=== PATIENT | male | born 1990 ===

== ENCOUNTER 2023-03-30 17:19 | Inpatient (IN) ==
--- NOTE | 2023-03-30 18:33 | History & Physical Report ---
Date of Service March 30, 2023 Assessment & Plan (1) Peritonsillar abscess: Plan: Unasyn 3g IV q6h Dexamethasone 10mg IV NPO, IV fluids Consult oromaxillofacial surgery (2) Elevated blood pressure reading: Plan: No known hypertension. Expect to improve with pain control. Will need to follow up with PCP on discharge. Plan VTE Prophylaxis - low risk Diet - NPO Disposition - admit to med/surg Admission and Anticipated Discharge Date Admission Date: March 30, 2023 History of Present Illness Chief Complaint: Sore throat Primary Care Provider: NO PCP Emigdoi Suarez is a 32 year old male transferred from [facility] due to peritonsillar abscess seen on CT. He reports sore throat and fever started two days ago. No longer able to eat or drink any thing. No difficulty with breathing. Case was discussed with Dr Bell and recommended transfer to [facility]. In [facility] ER he was given Clindamycin, Unasyn and Dexamethasone. Allergies Allergy/AdvReac Type Severity Reaction Status Date / Time shellfish derived Allergy Severe Swelling Unverified 03/30/23 19:31 of Lip/Tongue/Throat Fish Containing Products Allergy Swelling Verified 03/30/23 19:31 of Lip/Tongue/Throat Home Medications Medication Instructions Recorded Confirmed Type No Known Home Medications 03/30/23 03/30/23 History Past Med/Surg History Medical History (Updated 03/31/23 @ 06:49 by Rachid Eubanks MD) Morbid obesity No pertinent past medical history Surgical History (Updated 03/30/23 @ 19:28 by Rachid Eubanks MD) No pertinent past surgical history Social History Smoking Status: Never smoker Hx Alcohol Use: No Hx Substance Use: No Preferred Language: Serbian Communication Ability: Effective 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 Required: No Beliefs That Will Affect Care: None Current Living Situation: Family Current Living Situation Comment: Lives with brother Other Information That Helps Us Care for You: No Feels Safe at Home: Yes Safety Concerns: Feels Safe At This Time Assistive Devices: None Review of Systems Review of Systems: All systems reviewed & are unremarkable except as noted in HPI & below Physical Exam Constitutional: WD/WN, vitals as above ENMT: Unable to visualize oropharynx without tongue depressor, no oral thrush Respiratory: normal respiratory effort, lungs clear to auscultation no stridor Cardiovascular: Rate/Rhythm: regular rhythm and + tachycardic Heart Sounds: no murmur Extremities: normal capillary refill; no calf tenderness and no pedal edema Gastrointestinal (Abdomen): normal bowel sounds, soft, nontender, no hepatosplenomegaly Skin: no rashes, warm and dry Psychiatric: A+Ox3, euthymic affect Results & Data Results & Data Diagnostic Findings Image uploaded to blinkbox Code Status & VTE Plan Code Status Full VTE Prophylaxis Plan VTE Prophylaxis will be ordered: No PG Care Time/CCT Total # of Minutes Spent Total Time Spent with Patient: Total time spent is greater than 50% in coordination of care (as documented) at patient's floor/unit and/or counseling patient: Coding Level of Care Code 39329 INT INP/OBS CARE 2/55MIN Diagnoses Peritonsillar abscess J36 Elevated blood pressure reading R03.0
[2023-03-30 19:52] LABS: Hematocrit (blood only) 37.2 % (42.0-52.0); Hemoglobin 13.7 g/dl (14.0-18.0); Mean Corpuscular Hemoglobin 27.9 pg (25.0-34.0); Mean Corpuscular Hgb Conc 36.8 g/dL (32.0-36.0); Mean Corpuscular Volume 75.8 fL (80.0-100.0); Mean Platelet Volume 11.4 fL (9.4-12.4); Platelet Count 280 K/uL (130-400); RDW Coefficient of Variation 13.8 % (11.5-14.5); RDW Standard Deviation 37.5 fL (36.4-46.3); Red Blood Count 4.91 M/uL (4.70-6.10)
[2023-03-30 20:09] LABS: BUN Creatinine Ratio 16.8 (10-20); C Reactive Protein 16.81 mg/dl (0-0.5); Calcium 9.2 mg/dl (8.6-10.3); Creatinine Clr Calc Pharmacy 161.7 ml/min; Est GFR (African American) 112.7 ml/min; Est GFR (Non-African American) 97.3 ml/min; Potassium 3.6 mmol/L (3.5-5.1)
[2023-03-30 20:11] LABS: Basophils # (auto) 0.03 K/uL (0-0.2); Basophils % (auto) 0.1 %; Immature Granulocytes # (auto) 0.09 K/uL (0.01-0.20); Immature Granulocytes % (auto) 0.4 %; Lymphocytes # (auto) 1.34 K/uL (1.2-3.4); Lymphocytes % (auto) 6.1 %; Monocytes # (auto) 0.41 K/uL (0.11-0.59); Monocytes % (auto) 1.9 %; Neutrophils # (auto) 20.03 K/uL (1.40-6.50); Neutrophils % (auto) 91.5 %
[2023-03-30] MEDS ORDERED: MoRPHine SULFATE 4 MG/ML 1 ML CARP\\VIAL IV PRN (21:35)
[2023-03-30] MEDS ORDERED: DEXAMETHASONE SOD INJ 4 MG/ML VIAL IV SCH (22:00)
[2023-03-30] MEDS: dexAMETHasone 4 MG in SYRINGE 0 ML IV SCH (22:50)
[2023-03-30] MEDS: AMPICILLIN/SULBACTAM SOD 3,000 MG in 0.9 % SODIUM CHLORIDE 100 ML IV SCH (22:53)
[2023-03-30] MEDS: LACTATED RINGER'S 1,000 ML IV SCH (22:57)
[2023-03-30] MEDS: ACETAMINOPHEN 1,000 MG/100 ML VIAL IV PRN (22:58)
[2023-03-30] MEDS ORDERED: AMPICILLIN/SULBACTAM SOD 3,000 MG in 0.9 % SODIUM CHLORIDE 100 ML IV SCH (23:00)
[2023-03-31] MEDS: dexAMETHasone 4 MG in SYRINGE 0 ML IV SCH ×4 (04:30→22:14)
[2023-03-31] MEDS: AMPICILLIN/SULBACTAM SOD 3,000 MG in 0.9 % SODIUM CHLORIDE 100 ML IV SCH ×4 (04:33→22:17)
[2023-03-31 06:06] LABS: Basophils # (auto) 0.04 K/uL (0-0.2); Basophils % (auto) 0.2 %; Eosinophils # (auto) 0.05 K/uL (0-0.50); Eosinophils % (auto) 0.2 %; Hematocrit (blood only) 36.7 % (42.0-52.0); Hemoglobin 13.4 g/dl (14.0-18.0); Immature Granulocytes # (auto) 0.18 K/uL (0.01-0.20); Immature Granulocytes % (auto) 0.8 %; Lymphocytes # (auto) 1.47 K/uL (1.2-3.4); Lymphocytes % (auto) 6.8 %; Mean Corpuscular Hemoglobin 27.5 pg (25.0-34.0); Mean Corpuscular Hgb Conc 36.5 g/dL (32.0-36.0); Mean Corpuscular Volume 75.2 fL (80.0-100.0); Mean Platelet Volume 11.5 fL (9.4-12.4); Monocytes # (auto) 0.68 K/uL (0.11-0.59); Monocytes % (auto) 3.1 %; Neutrophils # (auto) 19.28 K/uL (1.40-6.50); Neutrophils % (auto) 88.9 %; Platelet Count 288 K/uL (130-400); RDW Coefficient of Variation 13.7 % (11.5-14.5); RDW Standard Deviation 36.9 fL (36.4-46.3); Red Blood Count 4.88 M/uL (4.70-6.10)
[2023-03-31 06:21] LABS: BUN Creatinine Ratio 22.6 (10-20); Calcium 9.2 mg/dl (8.6-10.3); Creatinine Clr Calc Pharmacy 175.6 ml/min; Est GFR (African American) 124.6 ml/min; Est GFR (Non-African American) 107.5 ml/min; Potassium 3.9 mmol/L (3.5-5.1)
--- NOTE | 2023-03-31 07:10 | Oral/Maxillofacial Consult ---
Date of Consultation March 31, 2023 Assessment & Plan (1) Peritonsillar abscess: (2) Morbid obesity: (3) Elevated blood pressure reading: History of Present Illness Attending Physician: Gerardo Beard MD History of Present Illness Oral Maxillofacial Surgery Exam Present Complaint: I have pain/swelling/ from left tonsil area x 3 days Got much worse on Friday AM--went to ER at [place] and transferred to [facility] Symptoms have been ongoing for a while x 3 days Swallowing difficult, pain on swallowing, talking is difficult No airway issues Oral Exam: all WNL-teeth in good condition Major issue is the left peritonsillar area with deviation of soft palate to the right Imaging: I reviewed the CT scan from [place] I agree with the report-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 No lesions noted that require follow up or Bx. Oral Care: Overall oral care is good Occlusion: Class III TMJ exam: No pop, clicking, pain, good ROM, No history of TMJ injury or dysfunction Periodontal exam: Healthy gingival tissue without evidence of periodontal pathology. Head/Neck exam: Neck is supple, FROM, Able to extend and flex neck w/o difficulty, no masses, no abnormalities, no airway issues, given issues with the swelling there is evidence of sleep apnea. Treatment Plan: Need to drain the left ART HISTORY PROFESSOR Set up with general anesthesia in hospital due to complexity of the procedure I reviewed the treatment plan and consent with the patient Understanding was expressed. Time was given for questions regarding the surgery, risks and post op care. Discussed alternative to treatment--procedure as planned, Do not do surgery Risks discussed: Bleeding,Pain,swelling,infection,delayed healing, nerve injury to face,lips,tongue,chin area which could be permanent (rare). TMJ, jaw stiffness, ear pain (referred). continued infection, evaluation for tonsil removal if reoccur Surgery to be set up for FridayMarch 31 in [place] Drainage of left ART HISTORY PROFESSOR. Allergies Allergy/AdvReac Type Severity Reaction Status Date / Time shellfish derived Allergy Severe Swelling Unverified 03/30/23 19:31 of Lip/Tongue/Throat Fish Containing Products Allergy Swelling Verified 03/30/23 19:31 of Lip/Tongue/Throat Home Medications Medication Instructions Recorded Confirmed Type No Known Home Medications 03/30/23 03/30/23 History Patient History Medical History (Updated 03/31/23 @ 06:49 by Rachid Eubanks MD) Morbid obesity No pertinent past medical history Surgical History (Updated 03/30/23 @ 19:28 by Rachid Eubanks MD) No pertinent past surgical history Social History Smoking Status: Never smoker Hx Alcohol Use: No Hx Substance Use: No Preferred Language: Afghan Communication Ability: Effective Podiatric Foot And Ankle Specialist Required: No Beliefs That Will Affect Care: None Current Living Situation: Family Current Living Situation Comment: Lives with brother Other Information That Helps Us Care for You: No Feels Safe at Home: Yes Safety Concerns: Feels Safe At This Time Assistive Devices: None Results & Data Vital Signs (Past 12 Hours) Vital Signs Temp Pulse Resp BP Pulse Ox O2 Del Method 03/30/23 21:25 36.9 C 94 H 18 96 Room Air 03/30/23 20:41 89 173/108 H PG Care Time/CCT Total # of Minutes Spent Total Time Spent with Patient: Total time spent is greater than 50% in coordination of care (as documented) at patient's floor/unit and/or counseling patient: Coding Level of Care Code 57828 IN/OBS CONSULT LVL 2,35M Diagnoses Peritonsillar abscess J36 Morbid obesity E66.01 Elevated blood pressure reading R03.0
[2023-03-31] MEDS: LACTATED RINGER'S 1,000 ML IV SCH (08:13)
[2023-03-31] MEDS ORDERED: ePHEDrine sulfate 50 MG/ML AMP IV PRN (12:30)
[2023-03-31] MEDS ORDERED: ATROPINE SULFATE 0.1 MG/ML 10ML SYR IV PRN (12:30)
[2023-03-31] MEDS ORDERED: ONDANSETRON INJ 2 MG/ML 2 ML VIAL IV PRN (12:30)
--- NOTE | 2023-03-31 12:30 | Anesthesiology Consultation ---
Date of Service March 31, 2023 Assessment & Plan (1) Encounter for pre-operative examination: Chart Review Chart Review: Acceptable Risk for Surgery and Patient NOT seen in Pre Admission Testing Consults Requested none History Surgery Operation Date: 03/31/23 08:20 Proposed Procedures p Left Incision and Drainage Pertonsillar Abscess - Venu Bell, DMD Height/Weight Height: 6 ft 3 in Weight: 148 kg Allergies Allergy/AdvReac Type Severity Reaction Status Date / Time shellfish derived Allergy Severe Swelling Unverified 03/30/23 19:31 of Lip/Tongue/Throat Fish Containing Products Allergy Swelling Verified 03/30/23 19:31 of Lip/Tongue/Throat Medications Home Medications Medication Instructions Recorded Confirmed Last Taken No Known Home Medications 03/30/23 03/30/23 Unknown Active Medications Generic Name Dose Route Start Last Admin Trade Name Freq PRN Reason Stop Dose Admin Ampicillin Sodium/Sulbactam 108 mls @ 200 mls/hr 03/30/23 22:00 03/31/23 10:48 Sodium 3,000 mg/ Sodium IV 04/09/23 21:59 Infused Chloride Q6H JANETH Infusion Protocol Acetaminophen 1,000 mg in 100 mls @ 400 mls/hr 03/30/23 21:35 03/30/23 23:50 Ofirmev IV 04/02/23 21:34 Infused Q8H PRN Infusion Pain or Fever Dexamethasone 4 mg/ Syringe 1 mls @ 1 mls/min 03/30/23 22:00 03/31/23 09:10 IV 04/29/23 21:59 1 mls/min Q6H JANETH Administration Lactated Ringer's 1,000 mls @ 125 mls/hr 03/30/23 22:30 03/31/23 10:48 Lr IV 03/31/23 14:29 125 mls/hr .Q8H JANETH Infusion Past Medical History Medical History Morbid obesity No pertinent past medical history Past Surgical History Surgical History No pertinent past surgical history Social History Smoking Status: Never smoker Hx Alcohol Use: No Hx Substance Use: No Physical Exam Vital Signs Last Vital Signs Temp 97.7 F 03/31/23 11:55 Pulse 90 03/31/23 11:55 Resp 14 03/31/23 11:55 BP 169/100 H 03/31/23 11:55 Pulse Ox 96 03/31/23 11:55 O2 Del Method Room Air 03/31/23 11:55 Testing Laboratory Results 03/31/23 05:26 03/31/23 05:26
--- NOTE | 2023-03-31 12:34 | History & Physical Bridge Note ---
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
[2023-03-31] MEDS ORDERED: MIDAZOLAM HCL 1 MG/ML 2ML VIAL ONE (12:53)
[2023-03-31] MEDS ORDERED: fentaNYL citrate PF 100 MCG/2 ML VIAL ONE (12:53)
[2023-03-31] MEDS ORDERED: BUPIVACAINE/EPINEPHRINE 0.5% 1:200,000 1.8 ML CARP ONE (13:11)
[2023-03-31] MEDS ORDERED: CHLORHEXIDINE GLUCONATE 0.12% 480 ML MT ONE (13:30)
[2023-03-31] MEDS ORDERED: SUCCINYLCHOLINE CHLORIDE 20 MG/ML 10 ML VIAL IV ONE (13:46)
[2023-03-31] MEDS ORDERED: LABETALOL HCL IV 5 MG/ML 20ML IV ONE (13:46)
[2023-03-31] MEDS ORDERED: ROCURONIUM BROMIDE 10 MG/ML 5 ML VIAL IV ONE (13:46)
[2023-03-31] MEDS ORDERED: PROPOFOL IV EMULSION 10 MG/ML 20 ML VIAL IV ONE (13:46)
[2023-03-31] MEDS ORDERED: DEXAMETHASONE SOD INJ 4 MG/ML VIAL ONE (13:46)
[2023-03-31] MEDS ORDERED: ONDANSETRON INJ 2 MG/ML 2 ML VIAL ONE (13:46)
[2023-03-31] MEDS ORDERED: NEOSTIGMINE METHYLSULFATE 1 MG/ML 10ML VIAL ONE (13:55)
[2023-03-31] MEDS ORDERED: GLYCOPYRROLATE 0.2 MG/ML VIAL ONE (13:55)
--- NOTE | 2023-03-31 14:01 | Post Operative Brief Note ---
PG Immediate Post Op with CF Date of Surgery March 31, 2023 Pre & Post Diagnosis Operation Date: 03/31/23 08:20 <No data on this case meets the specified criteria> I identified the patient and participated in the time-out.: Yes Procedure Operation Date: 03/31/23 08:20 <No data on this case meets the specified criteria> Surgeon Venu Bell, DMD Engine Generator Assembler none Estimated Blood Loss 6 Findings Consistent with Post-Op Diagnosis Tonsil abscess left side SUPPORT ARCHITECT Soft palate swelling Anesthesia Type General Complications none
--- NOTE | 2023-03-31 14:07 | Hospitalist Progress Note ---
Date of Service March 31, 2023 Assessment & Plan (1) Peritonsillar abscess: Plan: Seen on [facility] CT, no in-house imaging available for review. Noted to have a left peritonsillar abscess for which patient was recommended for transfer to [facility] after consultation with OMFS Dr. Bell. Received clinda/Unasyn/dexamethasone in [place], has been continued on dexamethasone/Unasyn, anticipate Augmentin on discharge Anticipate operative drainage today with Dr. Bell Patient is clinically improving and has had significant improvement in his pain. Continues to be slightly tender to palpation on the left anterior neck Leukocytosis uptrending in the setting of steroid use, patient has not had fever/chills/sweats overnight. Procalcitonin negative. CRP 16. (2) Elevated blood pressure reading: Plan: No known hypertension. Expect to improve with pain control. Will need to follow up with PCP on discharge. Plan VTE Prophylaxis - low risk Diet - NPO Disposition - admit to med/surg Admission and Anticipated Discharge Date Admission Date: March 30, 2023 Review of Systems Review of Systems: All systems reviewed & are unremarkable except as noted in Subjective Physical Exam Physical Exam: General: A&Ox3. NAD. Cooperative. HEENT: Atraumatic, normocephalic. Mallampati 34 with difficult visualization of posterior oropharynx, uvula appears midline. Pulm: CTAB A&P. -wheezes, -rales, -rhonchi. Symmetrical chest rise. No increased work of breathing. No respiratory distress. Cardiac: RRR, -mrg. Radial pulses intact and symmetrical. Abdominal: Nontender, nondistended, soft. BS present. Results & Data Results & Data Vital Signs (Past 12 Hours) Vital Signs Temp Pulse Pulse Resp BP Pulse Ox O2 Del Method 03/31/23 12:32 36.9 C 87 16 175/108 H 96 Room Air 03/31/23 11:55 36.5 C 90 14 169/100 H 96 Room Air 03/31/23 07:34 36.6 C 80 18 157/80 H 98 Room Air PG Care Time/CCT Total # of Minutes Spent Total Time Spent with Patient: Total time spent is greater than 50% in coordination of care (as documented) at patient's floor/unit and/or counseling patient: Coding Level of Care Code 64209 SUB INP/OBS CARE 2/35MIN Diagnoses Peritonsillar abscess J36 Elevated blood pressure reading R03.0
[2023-03-31] MEDS: fentaNYL citrate PF 100 MCG/2 ML VIAL IV PRN ×4 (14:30→14:45)
--- NOTE | 2023-03-31 15:12 | Anesthesiology Progress Note ---
Date of Service March 31, 2023 Anesthesia Post Procedure Vital Signs Vital Signs: Temp Pulse Pulse Pulse Resp BP BP 03/31/23 15:05 37.2 C 82 22 157/105 H 03/31/23 14:55 79 20 167/106 H 03/31/23 14:45 91 H 22 162/98 H 03/31/23 14:35 76 15 161/104 H 03/31/23 14:25 88 18 164/104 H 03/31/23 14:19 36.1 C L 86 16 195/104 H 03/31/23 12:32 36.9 C 87 16 175/108 H 03/31/23 11:55 36.5 C 90 14 169/100 H 03/31/23 07:34 36.6 C 80 18 157/80 H 03/30/23 21:25 36.9 C 94 H 18 03/30/23 20:41 89 173/108 H 03/30/23 18:46 105 H 184/121 H 03/30/23 18:21 36.9 C 107 H 18 178/130 H Pulse Ox O2 Del Method O2 Flow Rate 03/31/23 15:05 93 Room Air 03/31/23 14:55 93 Room Air 03/31/23 14:45 95 Room Air 03/31/23 14:35 99 Oxymask 3 03/31/23 14:25 99 Oxymask 6 03/31/23 14:19 97 Oxymask 6 03/31/23 12:32 96 Room Air 03/31/23 11:55 96 Room Air 03/31/23 07:34 98 Room Air 03/30/23 21:25 96 Room Air 03/30/23 20:41 03/30/23 18:46 03/30/23 18:21 97 Room Air Pain Intensity Throat: Pain Intensity: 4 Transfer of Care Handoff Completed per policy Notes Mental Status: alert / awake / arousable and participated in evaluation Patient Amnestic to Procedure: Yes Nausea / Vomiting: adequately controlled Pain: adequately controlled Airway Patency, RR, SpO2: stable & adequate BP & HR: stable & adequate Hydration State: stable & adequate Anesthetic Complications: no major complications apparent and Pt Satisfied with anesthetic care
[2023-03-31] MEDS ORDERED: CHLORHEXIDINE GLUCONATE 0.12% 480 ML MT PRN (15:29)
[2023-03-31] MEDS: ACETAMINOPHEN 1,000 MG/100 ML VIAL IV PRN (20:54)
[2023-04-01] MEDS: dexAMETHasone 4 MG in SYRINGE 0 ML IV SCH (04:55)
[2023-04-01] MEDS: AMPICILLIN/SULBACTAM SOD 3,000 MG in 0.9 % SODIUM CHLORIDE 100 ML IV SCH ×2 (05:22→10:33)
[2023-04-01 08:53] LABS: Polychromasia 1+; Target Cells 1+
[2023-04-01 09:09] LABS: Basophils # (auto) 0.02 K/uL (0-0.2); Basophils % (auto) 0.1 %; Hematocrit (blood only) 37.2 % (42.0-52.0); Hemoglobin 13.5 g/dl (14.0-18.0); Lymphocytes # (auto) 1.61 K/uL (1.2-3.4); Lymphocytes % (auto) 7.7 %; Mean Corpuscular Hemoglobin 27.5 pg (25.0-34.0); Mean Corpuscular Hgb Conc 36.3 g/dL (32.0-36.0); Mean Corpuscular Volume 75.8 fL (80.0-100.0); Mean Platelet Volume 11.3 fL (9.4-12.4); Monocytes # (auto) 0.63 K/uL (0.11-0.59); Neutrophils # (auto) 18.36 K/uL (1.40-6.50); Neutrophils % (auto) 88.2 %; Platelet Count 328 K/uL (130-400); RDW Coefficient of Variation 13.8 % (11.5-14.5); RDW Standard Deviation 37.5 fL (36.4-46.3); Red Blood Count 4.91 M/uL (4.70-6.10); White Blood Count 20.82 K/ul (4.8-10.8)
[2023-04-01 09:21] LABS: BUN Creatinine Ratio 22.6 (10-20); Calcium 9.1 mg/dl (8.6-10.3); Creatinine Clr Calc Pharmacy 154.1 ml/min; Est GFR (African American) 106.4 ml/min; Est GFR (Non-African American) 91.8 ml/min; Potassium 4.1 mmol/L (3.5-5.1)
--- NOTE | 2023-04-01 14:16 | Discharge Summary ---
Date of Service date of admission - March 30, 2023 date of discharge - April 01, 2023 Admission HPI Per Admitting Provider Emigdio Suarez is a 32 year old male transferred from [facility] due to peritonsillar abscess seen on CT. He reports sore throat and fever started two days ago. No longer able to eat or drink any thing. No difficulty with breathing. Case was discussed with Dr Mata and recommended transfer to [facility]. In [facility] ER he was given Clindamycin, Unasyn and Dexamethasone. Principal Diagnosis 1. peritonsillar abscess s/p I & D 2. suspected hypertension 3. morbid obesity BMI 40.8 Discharge Exam gen - pleasant, NAD; obese neck - no JVD mouth - tonsils - 1+ on right, 2+ on left; erythema present heart - RRR, s1 s2, no murmur lungs - CTA b/l abd - soft NT ND BS+ ext - no edema, pulses 2+ b/l Discharge Data Allergies Allergy/AdvReac Type Severity Reaction Status Date / Time shellfish derived Allergy Severe Swelling Unverified 03/30/23 19:31 of Lip/Tongue/Throat Fish Containing Products Allergy Swelling Verified 03/30/23 19:31 of Lip/Tongue/Throat Consultations Oromaxillofacial Surgery - Dr Venu Mata Procedures Performed Operation Date: 03/31/23 08:20 Actual Procedures Left Incision and Drainage Pertonsillar Abscess - Venu Mata, [facility] Hospital Course (1) Peritonsillar abscess: The patient was transferred from [facility] due to a left-sided peritonsillar abscess. This was confirmed on a CT neck done at [place]. He was initiated on IV antibiotics & steroids. Dr Venu Mata from oral surgery was consulted, and on 03/31/23 he underwent I & D of the abscess. The patient clinically improved and was fit for discharge from a surgical standpoint on 04/01/23. He will complete a course of oral augmentin BID at discharge and use Peridex mouthwash BID until he sees Dr Mata in follow-up. No throat culture data was available from the outside hospital. Regardless he improved with surgical intervention and steroids/antibiotics while here. The patient will follow-up with Dr Mata in the office within a week of discharge. (2) Elevated blood pressure reading without diagnosis of hypertension: All BP readings during the hospitalization were elevated. Both his systolics AND diastolics were ALL high. The patient reported a family history of HTN. EKG was wnl except for possible left atrial enlargement. It is possible that IV steroid use for #1 above may have contributed to his abnormal BPs. However, records from [facility] ER show that his BP there was 184/112 prior to ANY therapy for his peritonsillar abscess. In light of the severity of his BP readings (some systolics were in the 190s, and some diastolics were >110) I suggested he initiate amlodipine 5mg once daily. I encouraged him to check his BPs at home once or twice daily. He will need close f/u with his PCP for this problem. Handouts on HTN and "DASH" diet were given to patient at discharge. (3) Morbid obesity: BMI 40.8 Weight loss needed; DASH diet encouraged for #2 Plan The patient reported he did not have a PCP. Thus, he was provided a follow-up appointment with a new PCP to recheck his blood pressure and for other routine care. Total Time Total Time Spent Total Time Spent (In Minutes): 40 Discharge Plan Discharge Items Patient Disposition: Home - Self-Care Reason For Visit: PERITONSILLAR ABSCESS Discharge Diagnosis: 1. peritonsillar abscess - surgery by Dr Venu Mata 2. elevated blood pressure - high concern for hypertension Activity: Resume your previous activity Lifting: Gradually increase as tolerated Bathing: No limitations Exercise/Sports: Gradually increase as tolerated Driving/Machine Use: Resume 1 day after discharge Weightbearing: Full weightbearing Non-emergency contact: Primary Care Provider and Surgeon Call non-emergency contact if: you have any medication questions, your symptoms worsen and you have a fever Follow-up/Referrals: Tj Amador CRNP [Primary Care Provider] - 06/23/23 1:45 pm (Please arrive 15 minutes prior to appointment time. Establish care visit!) Jesusita Gilman PA-C [Physician Professor Of Family Medicine] - 04/11/23 8:20 am (Please arrive 15 minutes prior to appointment time. hospital follow up appointment) Venu Mata DMD [Physician] - (PATIENT WILL CALL DR MATA TO MAKE HIS OWN HOSPITAL FOLLOW UP NEXT WEEK.) Diet: Heart Healthy Diet Comment: diet as tolerated Addtl Attending Provider Instructions: Mr Suarez, You were hospitalized for a peritonsillar abscess. See handout on peritonsillar abscess. Dr Venu Mata, oral surgeon, saw you in consult and performed incision/drainage of the abscess. Your symptoms improved with the drainage procedure, IV antibiotics, and IV steroids. During your stay it was noted that all of your blood pressure readings were quite high. It is possible that pain/discomfort, IV steroids, etc contributed to your high blood pressure. However, all readings were high starting from the time of your arrival here. Many of the readings are severely elevated. I am suspicious that you have "essential hypertension" - or, "high blood pre ssure." Following the "DASH" diet (see handout) can lower your blood pressure by at least 10 points or more. However, even if the DASH diet is successful, your readings will still be very high. Of note - your EKG was largely normal. Recommendations - 1. peritonsillar abscess - * amoxicillin-clavulanate 875mg twice daily x 8 days, first dose TONIGHT - this is your antibiotic * Peridex mouthwash - 15ml swish/spit twice daily, first dose TONIGHT * itwn-oyx-kfqjnef tylenol 1000mg every 6 hours as needed for pain, maximum 3000mg in 24 hours 2. the antibiotics can cause diarrhea. Thus, while on antibiotics, please eat yogurt once or twice daily. You can also consider taking an adxf-wuo-pegguiz probiotic supplement. These are found in the vitamin section of any pharmacy or grocery store. 3. for high blood pressure - * please purchase a home blood pressure cuff; be sure to get the large cuff size; it is best to check your readings on the top portion of the arm if possible * check your blood pressures twice daily - AM and PM * be sure you have been sitting & resting comfortably for about 20 minutes prior to checking your blood pressure * amlodipine 5mg once daily each morning for high blood pressure * common side effects include constipation and, on occasion, swelling of your ankles * ultimately your blood pressure goal is <120/80 on most checks * DASH diet - see handout 4. follow-up - see separate section ADDITIONAL ACTIVITY RECOMMENDATIONS from Dr Mata: * [place] teeth after every meal. It is very important to keep your mouth clean to prevent infection. * Starting tonight rinse with the Peridex as directed then 2 x a day until you see Dr Mata in the office * it is very important to keep well hydrated, this prevents fever SPECIAL CARE INSTRUCTIONS: *It is not uncommon that between day 2-4 that your swelling will be at its worst this is very normal, do not be alarmed. * Tomorrow start rinsing and gargling your mouth with 1/2 teaspoon salt in 8 ounces warm water. This rinse should be used every 4-6 hours. * You may experience slight nausea. To prevent this, never take your medication on an empty stomach. If nauseated, take small sips of ty lópez until you feel better; then you may start on applesauce and toast. * Some swelling is common. It should gradually decrease within 4-[address] Mata at [phone] * You may experience some discomfort for a few days. If pain or swelling increases, Call Dr Mata * see Dr Mata in his office in about 1 week * office address--[facility] [address]. phone # [phone] Return to [facility] if - * you have fevers over 100 degrees * you have worsening pain or swelling in your throat * you have difficulty swallowing * you have severe diarrhea * any other concerns It was our pleasure to care for you! Pending Studies at Discharge: No Stand-Alone Forms: My [facility], Smoking Cessation Medications and DC Order Prescriptions: New amlodipine [Norvasc] 5 mg Tablet 5 mg PO QAM Qty: 30 2RF Rx Instructions: for high blood pressure chlorhexidine gluconate 0.12 % Mouthwash 15 ml MT BID Qty: 300 1RF Discharge Orders: Discharge Order (Routine); Ordered 04/01/23 Ordered By: Rachid Hannah/Other Patient Handouts: Peritonsillar Abscess, Controlling High Blood Pressure, DASH Plan Eat Heart Healthy Food, What Is High Blood Pressure Admission Data Admit Date/Time: 03/30/23 18:30 Attending Provider: Rachid Rossi Admit Provider: Rachid Eubanks Primary Care Provider: Tj Amador Other Providers: Venu Mata Other Interventions: Discharge Summary Assessment (RN) Last Done: 04/01/23 13:30 Coding Level of Care Code 67421 INP/OBS DISCH >30 MIN Diagnoses Peritonsillar abscess J36 Elevated blood pressure reading without diagnosis of hypertension R03.0 Morbid obesity E66.01
[2023-04-01] MEDS ORDERED: amLODIPine BESYLATE 5 MG TAB PO ONE (14:30)
[2023-04-01] MEDS ORDERED: dexAMETHasone 4 MG in SYRINGE 0 ML IV SCH (21:00)
[2023-04-02] MEDS ORDERED: amLODIPine BESYLATE 5 MG TAB PO SCH (09:00)
--- NOTE | 2023-04-03 06:05 | Electrocardiogram Report ---
Test Reason : Blood Pressure : / mmHG Vent. Rate : 081 BPM Atrial Rate : 081 BPM P-R Int : 148 ms QRS Dur : 084 ms QT Int : 358 ms P-R-T Axes : 053 -03 001 degrees QTc Int : 415 ms Normal sinus rhythm Possible Left atrial enlargement Borderline ECG No previous ECGs available Confirmed by Blabir Cardona ([id number]) on 04/03/2023 6:05:20 AM Referred By: Yojana Lott Confirmed By:Balbir Cardona
--- NOTE | 2023-04-14 10:08 | Operative Report ---
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 A time out was take for patient ID, antibiotics, equipment and position verification once all agreed the procedure began. Local anesthesia using Marcaine with a vasoconstrictor ( 1.8 ml per site) given into soft palate area. A throat pack was placed after the oral cavity was irrigated with saline. Once a surgical level of anesthesia was obtained and the local anesthesia was given time for the blocks the surgery was started. I turned my attention to the infection The soft palate and Uvula were defeated to the right as seen on the CT scan Incision and Drainage ([id number]) Drainage left Peritonsillar Abscess Using a 15 blade an incision was made lateral to the most swollen area of the soft palate and tonsil. Once the incision was made a lot of pus extruded from the site. A curved hemostat was carefully placed into the infected space to allow the medial area to the soft palate and Uvula areas to be drained. Some further drainage was now allowed to escape. I palpated the tonsil and posterior parapharyngeal area and no further drainage was expressed. The area was irrigated with at least 100 ml of NS solution. Excellent drainage was established-no drain was required. I inspected the site to insure all bleeding was controlled. I removed the throat pack and suctioned the throat. All instrument and sponge count was correct. The patient was allowed to awake from the anesthesia. Once full awake the anesthesia tube was removed and the patient was taken to the recovery room with all vital sign stable. The patient tolerated the surgery very well. I will follow the patient in my office, Rx and instructions will be given upon discharge. I attest to the content of the Intraoperative Record and any orders documented therein. Any exceptions are noted below.
== END 2023-04-01 17:35 | disposition home or self-care (01) | DRG 144 ==
LOC: 3W 18:18 → SUATTDRO 18:30